=== PATIENT | male | born 1995 ===

== ENCOUNTER 2017-07-12 09:46 | Outpatient (CLI) | payer OTHER ==
[~2017-07-12] VITALS: Ht 152.4 cm; Wt 89.8 kg
== END 2017-07-12 10:10 | disposition home or self-care (01) ==
LOC: OFIC 805 09:46
DX: H70.12 Chronic mastoiditis, left ear (principal); H90.12 Conductive hearing loss, unilateral, left ear, with unrestricted hearing on the contralateral side; H61.23 Impacted cerumen, bilateral